=== PATIENT | male | born 1975 | race Caucasian/White ===

== ENCOUNTER 2016-06-06 21:10 | Emergency (ER) | payer SELFPAY ==
--- NOTE | 2016-06-06 22:11 | EDM.PDOC ---
ED HPI CPR - General Stated Complaint: [facility] Time Seen by Provider: 06/06/16 21:55 - History of Present Illness INITIAL COMMENTS - FREE TEXT/NARRATIVE: 40-year-old male brought in to the emergency room after over an hour of CPR and resuscitative efforts. Resuscitative efforts were discontinued in the field. The patient was found by his brother who thought he saw seizure like activity but assessed for breathing and pulse and neither was found CPR was started the LS arrived within 10 or 15 minutes and assisted. They applied an AED shocked 5 times. They were intercepted in route by advance life support with [facility] who attempted medications in addition to good quality CPR and determined further resuscitative efforts would be of no benefit. I did review what happened with the advance life support crew and concur with their actions. ED ROS GENERAL - Review of Systems Review Of Systems: Unable To Obtain ED EXAM, CPR - Physical Exam Exam: See Below General Appearance: other (The patient was cyanotic upon arrival oral airway in place no evidence of spontaneous pulse or respirations with palpation and using stethoscope.) Course - Re-Assessments/Exams Free Text/Narrative Re-Assessment/Exam: 06/06/16 22:10 I did review the situation with the advanced life support crew and we did discuss the situation with the family. They describe a family history of premature coronary artery disease. However, state that they thought the patient was in fairly good health as he was seen by the doctor this last winter and everything looked good. Departure - Departure Time of Disposition: 22:11 Disposition: 20 Clinical Impression: Cardiopulmonary arrest
== END 2016-06-07 11:10 | disposition expired ==
LOC: JD.ED 21:10
DX: I46.9 Cardiac arrest, cause unspecified (principal)
CPT/HCPCS: 99283